=== PATIENT | female | born 1995 | race Caucasian/White ===

== ENCOUNTER 2018-10-26 10:21 | Emergency (ER) | payer SELFPAY ==
[2018-10-26 10:51] VITALS: BP 110/66; PULSE 69; RESP 15; TEMP 36.4; O2SAT 98
--- NOTE | 2018-10-26 11:30 | ED.GENADUL_ITS ---
Discharge Plan Disposition Patient Disposition: HOME Condition: Stable Discharge Details Chief Complaint: RespSymp Clinical Impression: Sinusitis, Cough Primary Care Provider: None,None ED Provider: Lily Martines Home Meds and New Rx's Prescriptions: New doxycycline hyclate 100 mg tablet 100 mg PO BID 7 Days Qty: 14 RF: 0 Discharge Instructions Instructions: Sinusitis (ED), Acute Cough (ED) Additional Instructions: Continue to alternate Tylenol and Motrin as needed for pain. Take [id number] cough and cold medicine. Take the antibiotics until finished. You will receive a call from care management regarding follow-up with primary care doctor. Return immediately to the emergency department any worsening or concerning symptoms. Discharge Data Discharge Date/Time-TO BE ENTERED AT DEPARTURE: 10/26/18 14:38 Discharge Physician: Lily Martines Medical Decision Making 23-year-old female who presents to the ED with complaint of cough with green sputum, sinus pressure, sore throat, and body aches over the past 9 days. Patient states she received the flu shot this year. Patient states the sinus drainage and cough is bothering her the most. Vitals within normal limits. Afebrile. Patient appears nontoxic and in no acute distress. She is talkative and laughing throughout exam. She has tenderness to palpation of her bilateral maxillary and frontal sinuses, remainder of ENT exam within normal limits. Lungs clear to auscultation. Differential diagnosis includes sinus infection, bronchitis, viral pharyngitis, viral URI. Patient had also discussed recent travel from [place] 1 month ago in which she drove for 3 hours. Patient states they took a break every 3 hours to exit the vehicle. She also admits that she has had chronic right calf pain for several months. She also admits to occasional shortness of breath and chest congestion with pain with coughing. Discussed with patient that as her symptoms appear infectious in nature, and her calf pain is chronic, this appears more infectious rather than associated with a DVT and she is agreeable. Discussed obtaining a leg ultrasound and workup for PE, but patient declines this. PERC negative. No calf tenderness or edema b/l. The risks of and disability due to this were explained the patient and fully understands. Patient and I engaged in shared decision making regarding treatment for her most concerning symptom of a sinus infection, and that if her symptoms progress or worsen, to return immediately to the emergency department. Will place patient on care management list to arrange for a follow-up appoint with primary care doctor for reevaluation. Patient instructed return here at anytime if worse. HPI General Mode of arrival: ambulatory . Date/Time Provider Initiated Documentation: 10/26/18 11:29 . Limitations to Documentation: no limitations . Information obtained by: patient . HPI Narrative: Pt is a 23yo F w/ a h/o asthma who presents to the ED w/ a c/o cough with green sputum, sinus pressure, post nasal drip, chest congestion, bodyaches, fatigue, occasional shortness of breath and chest burning with coughing for the past 9 days. Pt states she received the flu shot this season. Pt states she has been eating a drinking normally and denies fever. Pt states she has been alternating motrin and tylenol for her symptoms. Pt states mulitple other family members are sick with the same symptoms. Pt states she recently moved here from [place] 1 month ago and does not have a doctor. LMP 10/06/18. Related Data Home Medications Medication Instructions Recorded Confirmed doxycycline hyclate 100 mg PO BID 7 Days #14 tab 10/26/18 Previous Rx's Medication Instructions Recorded doxycycline hyclate 100 mg PO BID 7 Days #14 tab 10/26/18 Allergies Allergy/AdvReac Type Severity Reaction Status Date / Time Penicillins Allergy Anaphylaxsi Unverified 10/26/18 10:56 s General Stated Complaint: RespSymp MOOK: 4 Review of Systems Review of Systems All systems reviewed & are unremarkable except as noted in HPI and below Constitutional Reports as per HPI, Denies chills and Denies fever(s) Eyes Denies blurry vision ENT Denies dizziness, Reports nasal congestion, Reports post nasal drip, Reports sinus pain, Reports sinus pressure, Reports sore throat and Denies throat swelling Cardiovascular Denies chest pain and Denies dyspnea Respiratory Denies dyspnea Gastrointestinal Denies abdominal pain, Denies diarrhea and Denies vomiting Genitourinary Denies hematuria and Denies dysuria Musculoskeletal Denies back pain and Denies numbness Integumentary/Breasts Denies lesions and Denies rash Neurologic Denies dizziness and Denies numbness Allergic/Immunologic Denies throat swelling [facility] Medical History Anxiety (Chronic) Asthma (Chronic) Surgical History No significant past surgical history (Chronic) Social History Smoking/Tobacco Use Status: Current every day alcohol intake: current alcohol intake frequency: a few times a month substance use type: marijuana Exam Const General: cooperative, healthy appearing and no acute distress HENMT Head: normal to inspection Ears: hearing grossly normal bilaterally and TM's normal bilaterally General nose exam: external nose normal Face and sinus: normal facial exam and sinus tenderness frontal and maxillary Mouth: oral mucosae normal Teeth and gingiva: dentition normal Throat: posterior oropharynx normal and uvula midline Eyes General: appearance normal, both eyes and all related structures Pupils: PERRL EOM: EOM intact bilaterally Neck Neck: normal visual inspection and No submandibular swelling Lymphatic: no lymphadenopathy noted Chest Chest: normal inspection of the chest and no tenderness Resp Effort & Inspection: normal respiratory effort and able to speak in complete sentences Auscultation: clear to auscultation bilaterally Cardio Rate: regular rate Rhythm: regular rhythm GI Inspection: normal to inspection Skin General skin exam: no rashes or lesions noted Neuro General: alert, awake and oriented x3 Cognition: normal cognition Speech: speech normal Motor: muscle tone normal throughout Sensory Exam: no sensory deficits noted Extrem General: normal to inspection, full ROM, normal capillary refill, no calf tenderness bilaterally and no edema Psych Appearance: grossly normal Mental Status: mental status grossly normal Speech and Movement: speech and movement normal Affect: normal affect Course Vital Signs Temperature 97.5 F L 10/26/18 10:51 Pulse 69 10/26/18 10:51 Respiratory Rate 15 10/26/18 10:51 Blood Pressure 110/66 10/26/18 10:51 Pulse Oximetry 98 10/26/18 10:51 Temperature 97.5 F L 10/26/18 10:51 Temperature Source Temporal Artery Scan 10/26/18 10:51 Pulse 69 10/26/18 10:51 Respiratory Rate 15 10/26/18 10:51 Respiratory Effort Non-Labored 10/26/18 10:57 Respiratory Depth Normal 10/26/18 10:57 Blood Pressure 110/66 10/26/18 10:51 Blood Pressure Position Sitting 10/26/18 10:51 Pulse Oximetry 98 10/26/18 10:51 Oxygen Delivery Method Room Air 10/26/18 10:51 Oxygen Flow Rate 0 10/26/18 10:51 Pain Level 3 10/26/18 10:51
--- NOTE | 2018-10-29 07:58 | PDOC.ERCMPRO ---
Care Management Progress Note 10/29-Dr. 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 Referral faxed to [facility] this am.
--- NOTE | 2018-10-29 07:59 | CMPROGNOTE_ITS ---
Care Management Progress Note 10/29-Dr. 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 Referral faxed to [facility] this am.
== END 2018-10-26 14:38 | disposition home or self-care (01) ==
PROVIDERS: Emergency Provider Physician Assistant
DX: J01.90 Acute sinusitis, unspecified (principal); R05 Cough; G89.29 Other chronic pain; M79.661 Pain in right lower leg
CPT/HCPCS: 81025; 99283